=== PATIENT | male | born 1960 | race Caucasian/White ===

== ENCOUNTER 2016-12-06 06:06 | Day surgery (SDC) | payer OTHER ==
--- NOTE | 2016-11-13 16:20 | HP ---
CC: Dr. Keyon Monzon * PREOPERATIVE HISTORY AND PHYSICAL: DATE OF PREOPERATIVE HISTORY AND PHYSICAL EXAMINATION: 11/13/16. DATE OF ADMISSION: 12/06/16 [facility] This patient is scheduled for Same-Day Surgery admission by Dr. Bacon on , 12/06/16. ATTENDING SURGEON: Jorge Bacon MD * (dictated by Rashida Cisneros NP). CHIEF COMPLAINT: Umbilical hernia. HISTORY OF PRESENT ILLNESS: The patient is a 55-year-old male, recently evaluated by Dr. Bacon for umbilical hernia. Dr. Bacon saw him about 5 years ago for the same complaint and at that time it was not bothering him, but at this time, it has become more uncomfortable. He denies any signs or symptoms to suggest incarceration or strangulation. He does not do any heavy lifting at work, but recalls an incident when he was helping his daughter move to an apartment and had to lift heavy furniture at that time. Dr. Bacon examined the patient and notes an umbilical hernia about 2.5 cm across, mildly tender, but easily reducible. Dr. Bacon discussed the findings with the patient and has recommended open umbilical hernia repair with mesh as a Same-Day Surgery procedure at [facility]. Dr. Bacon discussed the nature of the surgical procedure, the use of mesh, the relevant risks and benefits, and today I reviewed the expected postoperative care and recovery. The patient has had a chance to ask questions and stated that he understands the information and is satisfied with the answers given to his questions. He will sign surgical consent on the day of surgery. PAST MEDICAL HISTORY: Generally healthy. No acute or chronic conditions; he states that he is a recovering alcoholic, sober since 2002. PAST SURGICAL HISTORY: Full dental extraction under general anesthesia by Dr. Camacho. MEDICATIONS: 1. Levothyroxine 137 mcg p.o. daily in the morning. 2. Fluoxetine 20 mg p.o. daily in the morning. 3. Cetirizine 10 mg p.o. daily in the morning as needed. ALLERGIES: CODEINE and CHOCOLATE, both cause palpitations and dyspnea. SOCIAL HISTORY: He is ; he is employed in customer service; he has never been a smoker. He walks daily for exercise. He denies the use of alcohol or other substances. FAMILY HISTORY: No known anesthesia complications, bleeding tendencies or clotting disorders. REVIEW OF SYSTEMS: Constitutional: No fevers or chills. No excessive fatigue or weight loss. Respiratory: No cough or dyspnea. Cardiovascular: No anginal chest pain, palpitations or orthopnea. No history of deep vein thrombosis or pulmonary embolism. Hematologic: No easy bruising or bleeding. No history of blood transfusions. Gastrointestinal: No nausea, vomiting, diarrhea or chronic constipation. Genitourinary: No dysuria. Neurologic: No headache or blurred vision. Normal gait. General: No previous anesthesia complications. Psychiatric: Anxiety and depression; sober and in recovery from alcoholism since 2002. PHYSICAL EXAMINATION GENERAL SURVEY: The patient is a 55-year-old male, well developed, overweight, well nourished, in no acute distress. VITAL SIGNS: Height 72 inches, weight 234 pounds, body mass index 31.7. Blood pressure 160/90, pulse 72 and regular, respiratory rate 18. HEENT: Benign. NECK: Supple. No cervical lymphadenopathy. LUNGS: Breath sounds bilaterally clear and equal. HEART: Regular rate and rhythm. No murmurs or rubs. ABDOMEN: Active bowel sounds. Soft, nondistended, nontender throughout; obvious umbilical hernia bulge, which is about 2.5 cm across, mildly tender, and easily reducible. No other palpable masses or organomegaly. BACK: No CVA tenderness. GENITALIA: Deferred. RECTAL: Deferred. EXTREMITIES: Warm, without edema or skin ulcerations. NEUROLOGIC: Alert and oriented x3. Steady gait. SKIN: Warm, dry, intact. IMPRESSION: Umbilical hernia. PLAN: Same-Day Surgery admission to Dr. Bacon's service on , 12/06/16 , for open umbilical hernia repair with mesh. CLOVER CISNEROS, SPECIAL NEEDS TEACHER [id number]/[facility] #: [id number] HAYDEE
[~2016-12-06 06:06] MED LIST: Buffered Lidocaine 0.9% SYRIN* 5 ML/SYR SYRINGE INTRADERM ONE; Famotidine IV* 10 MG/ML 2 ML (20 mg) IV ONE
[2016-12-06] MEDS ORDERED: ceFAZolin 2 GM PREMIX (*) 50 ML IVPB ONE (06:25)
[2016-12-06] MEDS ORDERED: Famotidine IV* 10 MG/ML 2 ML (20 mg) ONE (06:25)
[2016-12-06] MEDS ORDERED: Buffered Lidocaine 0.9% SYRIN* 5 ML/SYR SYRINGE ONE (06:25)
[2016-12-06] MEDS ORDERED: Bupivacaine 0.25% SDV* 30 ML ONE (07:09)
[2016-12-06] MEDS ORDERED: Bupivacaine 0.5% SDV PF* 30 ML VIAL ONE (07:10)
[2016-12-06] MEDS ORDERED: Lidocaine 1% INJ* 10 MG/ML 30 ML SDV ONE (07:10)
[2016-12-06] MEDS ORDERED: Midazolam* 1 MG/ML 5 ML VIAL (5 MG) ONE (07:36)
[2016-12-06] MEDS ORDERED: fentaNYL* 50 MCG/ML 2 ML VIAL (100 MCG VIAL) ONE (07:36)
[2016-12-06] MEDS ORDERED: Lidocaine 2% PF * 5 ML VIAL ONE (07:55)
[2016-12-06] MEDS ORDERED: Ondansetron INJ* 2 MG/ML VIAL ONE (07:55)
[2016-12-06] MEDS ORDERED: Ketorolac INJ* 30 MG/ML 1 ML VIAL ONE (07:55)
[2016-12-06] MEDS ORDERED: Propofol* 10 MG/ML 20 ML BTL IV PUSH ONE (07:55)
[2016-12-06] MEDS ORDERED: KETAMINE HCL* 50 MG/ML 10 ML VIAL ONE (07:58)
[2016-12-06] MEDS ORDERED: HYDROmorphone INJ* 1 MG/ML CARPUJECT SYRINGE IV PRN (08:54)
[2016-12-06] MEDS ORDERED: oxyCODONE TAB* 5 MG TAB PO PRN (08:54)
[2016-12-06] MEDS ORDERED: Acetaminophen TAB* 325 MG PO PRN (08:54)
[2016-12-06] MEDS ORDERED: DiMENhydriNATE IV* 50 MG/ML VIAL IV PUSH PRN (08:54)
[2016-12-06 09:42] VITALS: BP 129/88
--- NOTE | 2016-12-06 14:09 | OP ---
CC: Dr. Bacon; Dr. Keyon Monzon OPERATIVE REPORT: DATE OF OPERATION: 12/06/16 DATE OF : 58 SURGEON: Jorge Bacon MD HOME TEACHING GRADES 9 THRU 12 TEACHER: None. ANESTHESIOLOGIST: Dr. Au. ANESTHESIA: LMAC anesthesia. PRE-OP DIAGNOSIS: Umbilical hernia. POST-OP DIAGNOSIS: Umbilical hernia. OPERATIVE PROCEDURE: Open umbilical hernia repair with mesh. DESCRIPTION OF PROCEDURE: The patient was supine on the operating table. After adequate intravenou s sedation, compression stockings, Roseann Hugger warmer, and intravenous antibiotics, the abdomen was clipped and prepped with antiseptic, draped in sterile fashion. Local infiltrative anesthesia was a dministered. Infraumbilical curvilinear incision was created. Dissection carried down to the hernia sac, which was dissected free and reduced. The hernia defect was about 2 cm across. The preperito ashish plane was developed and a 4.3 cm underlay patch was placed, sutured up in 4 quadrants. The fas ryan was closed over top with 0 Polysorb. Umbilical skin was tacked back down with 3-0 Polysorb and s kin closed with 5-0 Polysorb followed by Steri-Strips. He tolerated the procedure well, was awakene d and brought to recovery in good condition. No complications. No drains. No pathologic specimens . Sponge and instrument counts were correct. Estimated blood loss was about 20 mL. [id number]/[facility] #: [id number]
--- NOTE | 2016-12-06 19:16 | SURGPN ---
Brief Operative Note - Surgery Procedures: Procedures Pre-Op Dg: Umbilical Hernia Post-Op Dg: Umbilical Hernia Procedure: Open Hernia Repair with mesh Anesthesia: GET Surgeon: Dr. Jorge Bacon Systems Checkout Mechanic: NICA Orozco-Student Fluids: Lactated Ringers 1,000 mls @ 125 mls/hr IV Drains: None Specimen: None Findings: Dictated ALCOHOL DETOXIFICATION (02/15/01)
--- NOTE | 2016-12-06 19:35 | PN ---
Progress Note - Progress Note Date of Service: 12/06/16 SOAP: Subjective: [] Eladio Angeles is a pleasant 56 year old male who presented to the hospital with an umbilical hernia. He first noticed it after he was helping his daughter move furniture back in 2011. Throughout the 5 year period the patient was able to reduce the hernia. There was no strangulation or incarceration. An open hernia repair with mesh was performed today by Dr. Bacon. Patient has a past medical history of hypothyroidism and depression for which he is taking Levothyroxine and Fluoxetine respectively. The patient is a former alcoholic, but has been sober since 2002. He had an alcoholic detoxification on 02/15/2001. He never smoked and he does not use recreational drugs. Patient walks daily for exercise. Allergies: Codeine and Chocolate which both cause palpitations and dyspnea. Current Medications Acetaminophen (Tylenol Tab*) 650 mg PO ONCE PRN PRN Reason: PAIN - MILD Stop: 12/06/16 08:55 Dimenhydrinate (Dramamine Iv*) 12.5 mg IV PUSH ONCE PRN PRN Reason: NAUSEA/VOMITING Stop: 12/06/16 08:55 Famotidine (Pepcid Iv*) 20 mg IV ONCE ONE Stop: 12/06/16 06:01 Last Admin: 12/06/16 06:39 Dose: 20 mg Hydromorphone HCl (Dilaudid Inj*) 0.2 mg IV Q5M PRN PRN Reason: PAIN - SEVERE Stop: 12/06/16 09:15 Lactated Ringer's (Lactated Ringers 1000 Ml Bag*) 1,000 mls @ 125 mls/hr IV PER RATE ARNIE Last Admin: 12/06/16 06:39 Dose: 125 mls/hr Lidocaine/Sodium Bicarbonate (Buffered Lidocaine 0.9% Syrin*) 0.2 ml INTRADERM ONCE ONE Stop: 12/05/16 13:05 Last Admin: 12/06/16 06:40 Dose: 0.2 ml Oxycodone HCl (Roxycodone Tab*) 5 mg PO ONCE PRN PRN Reason: PAIN - MODERATE Stop: 12/07/16 08:55 Objective: [] Vital Signs - On Arrival Temp Pulse Resp BP Pulse Ox 97.7 F 79 16 156/89 97 12/06/16 06:30 12/06/16 06:30 12/06/16 06:30 12/06/16 06:30 12/06/16 06:30 Vital Signs - Most Recent Temp Pulse Resp BP Pulse Ox 97.3 F 65 18 129/88 96 12/06/16 08:50 12/06/16 09:30 12/06/16 09:30 12/06/16 09:15 12/06/16 09:30 Physical Exam: Cardiac: Auscultation of the precordium reveals S1, S2, and S4. No murmurs were heard. Respiratory: Auscultation of anterior/posterior/lateral lung lu revealed no wheezing, rales, or rhonchi. Assessment: [] Post-operative open hernia repair with mesh. Plan: [] Patient can go home today, but should not drive home by himself. A follow up appointment is scheduled for him on December 14, at 11:30 AM. Post-Operative Instructions: Patient can resume regular diet. Patient can apply ice for the wound as needed. Patient may shower on the second day after the surgery, but no bath for 1 week. Patient should leave the steri-strips until they loosen. Patient can wear a gauze over the incision, if the cloth irritates it. Patient should not be lifting anything heavier than 30 lbs for 4 weeks. Patient should avoid sitting for prolonged time. Patient should not be driving a car by himself until the day of his follow up appointment. Patient should call if there is increase in pain, redness, or swelling; if the wound drains; or if there is a fever.
== END 2016-12-06 09:43 | disposition home or self-care (01) ==
LOC: OR 06:06
PROVIDERS: ATTEND Surgery
DX: K42.9 Umbilical hernia without obstruction or gangrene (principal); Z88.5 Allergy status to narcotic agent; E03.9 Hypothyroidism, unspecified; F32.9 Major depressive disorder, single episode, unspecified; J30.2 Other seasonal allergic rhinitis
CPT/HCPCS: C1781; J0690; J1885; J2001; J2250; J2405; J2704; J3010